=== PATIENT | male | born 2000 | race Hispanic/Latino ===

== ENCOUNTER 2022-06-09 22:23 | Emergency (ER) | payer MEDICAID, OTHER ==
[~2022-06-09] VITALS: Ht 172.7 cm; Wt 67.6 kg
[2022-06-09 22:26] VITALS: BP 126/69
[2022-06-10] MEDS ORDERED: BACITRACIN 1 EACH PACKET TP ONE ×2 (00:10→00:30)
[2022-06-10] MEDS ORDERED: BACI30OI6 TP (00:20)
[2022-06-10] MEDS ORDERED: AMOX1TAB16 PO (00:20)
[2022-06-10] MEDS ORDERED: AMOX/CLAV 875/125MG TAB PO ONE ×2 (00:24→00:30)
[2022-06-10] MEDS ORDERED: TETANUS/DIPHTHERIA TOXOID [ADULT] 0.5 ML VIAL IM ONE ×2 (00:24→00:30)
== END 2022-06-10 00:34 | disposition home or self-care (01) ==
LOC: EDH 22:23
DX: S61.212A Laceration without foreign body of right middle finger without damage to nail, initial encounter (principal); X58.XXXA Exposure to other specified factors, initial encounter; Y93.89 Activity, other specified; Y92.89 Other specified places as the place of occurrence of the external cause; Y99.8 Other external cause status
CPT/HCPCS: 12001; 73140; 90471; 90714